=== PATIENT | female | born 1980 | race Caucasian/White ===

== ENCOUNTER → 2017-12-22 16:21 | Outpatient (CLI) | payer OTHER, SELFPAY ==
[2017-12-26 11:40] LABS: HPV Reflexed? NOT INDICATED
== END ==
PROVIDERS: Visit Provider Obstetrics & Gynecology
DX: Z12.4 Encounter for screening for malignant neoplasm of cervix (principal)
CPT/HCPCS: 88175; G0145

== ENCOUNTER → 2020-04-11 13:12 | Outpatient (CLI) | payer OTHER, SELFPAY ==
[2015-11-26 21:11] VITALS: BMI 27.3
[2020-04-11 13:44] LABS: Hematocrit 34.1 % (37-47); Mean Corp Hgb Conc 32.3 g/dL (32-36); Mean Corpuscular Hgb 30.5 pg (27.0-32.0); Mean Corpuscular Volume 94.5 fL (81-99); Mean Platelet Vol. 9.2 fl (6.2-12.0); Platelet Count 194 K/mm3 (150-450); RBC Distribution Width CV 13.1 % (11.6-14.6); RBC Distribution Width SD 45.3 fl (35.1-43.9); Red Blood Count 3.61 M/mm3 (4.2-5.4)
[2020-04-11 15:55] LABS: Glucose Challenge Gest 1H 50g 71 mg/dL (70-140)
== END ==
PROVIDERS: Visit Provider Student in an Organized Health Care Education/Training Program
DX: Z34.82 Encounter for supervision of other normal pregnancy, second trimester (principal)
CPT/HCPCS: 36415; 82950; 85027

== ENCOUNTER → 2020-07-07 | Outpatient (CLI) | payer OTHER, SELFPAY ==
[2015-11-26 21:11] VITALS: BMI 27.3
== END | disposition home or self-care (01) ==
LOC: LABSPEC 11:39
PROVIDERS: Visit Provider Student in an Organized Health Care Education/Training Program
DX: Z36.85 Encounter for antenatal screening for Streptococcus B (principal)
CPT/HCPCS: 87077; 87081; 87186

== ENCOUNTER → 2020-07-24 | Outpatient (CLI) | payer OTHER, SELFPAY | END | disposition home or self-care (01) | LOC: LABSPEC 14:35 | PROVIDERS: PCP Family Medicine; Referring Provider Student in an Organized Health Care Education/Training Program; Visit Provider Student in an Organized Health Care Education/Training Program | DX: Z03.818 Encounter for observation for suspected exposure to other biological agents ruled out (principal) | CPT/HCPCS: 87635; C9803; U0002 ==

== ENCOUNTER 2020-07-27 05:00 | Inpatient (IN) | payer OTHER, SELFPAY ==
[2020-07-27] VITALS (16 sets, daily range): BP systolic 90–113; BP diastolic 45–61; PULSE 43–58; RESP 10–18; TEMP 36–36.9; O2SAT 97–100; BMI 25.6
[2020-07-27] MEDS: Lactated Ringers 1,000 ML 999 ML IV (05:25)
[2020-07-27 05:38] LABS: Absolute Lymphocyte Count 1.09 X10^3/uL (0.83-4.51); Absolute Neutrophil Count 3.3 X10^3/uL (2.0-7.7); Basophil# 0.03 X10^3/uL; Basophil% 0.6 % (0-1); Eosinophil# 0.02 X10^3/uL; Eosinophils% 0.4 % (0-5); Hematocrit 36.3 % (37-47); Hemoglobin 12.1 g/dL (12.0-15.0); Lymphocyte # 1.09 X10^3/ul (4.0); Lymphocyte % 22.3 % (19-41); Mean Corp Hgb Conc 33.3 g/dL (32-36); Mean Corpuscular Hgb 31.8 pg (27.0-32.0); Mean Corpuscular Volume 95.5 fL (81-99); Mean Platelet Vol. 10.2 fl (6.2-12.0); Monocyte% 8.2 % (0-10); NRBC Flagged by Analyzer 0 % (0-5); Neutrophil # 3.26 X10^3/uL (2.7-7.7); Neutrophil % 66.9 % (47-70); Platelet Count 162 K/mm3 (150-450); RBC Distribution Width CV 11.9 % (11.6-14.6); RBC Distribution Width SD 41.3 fl (35.1-43.9); White Blood Count 4.9 K/mm3 (4.4-11.0)
[2020-07-27] MEDS: Acetaminophen 500 MG Tablet 1000 MG PO ×3 (05:43→18:29)
[2020-07-27] MEDS: Lactated Ringers 1,000 ML 150 ML IV (06:23)
[2020-07-27] MEDS: Sodium Citrate/Citric Acid 30 ML UDC PO (06:41)
--- NOTE | 2020-07-27 07:24 | HP.PCM_ITS ---
History and Physical Date of Admission: 07/27/20 HPI: 39-year-old L3 at 39/5, MARITO 07/29/2020 by IVF, admitted for repeat section. Denies leaking of fluid, vaginal bleeding, reports movement. This is complicated by: IVF , advanced maternal age Obstetrical History living 3 G1: 01/25/13 primary c-sesction, female G2: Repeat C/S on 11/26/15.twin girls G3: Current Past Medical History Infertility Medications PNV Past Surgical History [place] teeth extraction, section, dilation and curettage Social History Tobacco use: Denies Alcohol use: Denies Illicit drug use: Denies Labs Blood type: A positive Rubella: Immune Hep B/C: Neg/Neg HIV: Neg RPR: nonreactive GBS: pos Allergies NKDA Review of Systems General: alert and oriented HEENT: _denies change of vision Heart/lungs: _denies CP, SOB GI: _denies nausea, vomiting, dysuria, diarrhea MSK: _denies calf pain, tenderness Physical Exam Vital Signs Temp Pulse Resp BP Pulse Ox 07/27/20 05:24 97.6 F L 58 L 16 104/59 L 98 General: a&o x3, NAD HEENT: normocephalic, atraumatic Cardio: no JVD Resp: no increased work in breathing Abdomen: soft, gravid, nontender Extremities: _minimal-moderate edema Labs Laboratory Results - last 24 hr 07/27/20 07/27/20 05:26 05:26 WBC 4.9 RBC 3.80 L Hgb 12.1 Hct 36.3 L MCV 95.5 MCH 31.8 MCHC 33.3 RDW Std Deviation 41.3 RDW Coeff of Leeroy 11.9 Plt Count 162 MPV 10.2 Immature Gran % (Auto) 1.600 H Neut % (Auto) 66.9 Lymph % (Auto) 22.3 [place] % (Auto) 8.2 Eos % (Auto) 0.4 Baso % (Auto) 0.6 Absolute Neuts (auto) 3.3 Absolute Lymphs (auto) 1.09 Nucleated RBC % 0 Blood Type A POSITIVE Antibody Screen NEGATIVE Assessment & Plan 39-year-old L3 at 39/5, MARITO 07/29/2020 by IVF, admitted for repeat section. This is complicated by: IVF , advanced maternal age Admit to L&D - Routine labor orders - Ancef 2g preop - GBS pos - Anesthesia to see
[2020-07-27] MEDS: Cefazolin 2 GM in 0.9% Normal Saline 100 ML IV (07:28)
--- NOTE | 2020-07-27 08:15 | PCM.OPRPT ---
Delivery Classification: Scheduled Final MARITO: 07/29/20 Final MARITO Source: US <20 weeks Gestational age: 39 Weeks and 5 Days Date of Procedure: 07/27/20 Pre-Operative Diagnosis: Mireles intrauterine . Repeat section Post-Operative Diagnosis: Mireles intrauterine . Repeat section Indications: 39-year-old G3, P2 L3 at 39/5 weeks admitted for repeat section. All risks, benefits, alternatives discussed with the patient. Risks include but are not limited to: Risk of bleeding to the point of transfusion, infection, injury to surrounding tissue including bowel or bladder, VTE, ICU admission. Patient aware and consented Description of Procedure: Patient taken to the operating room spinal anesthesia placed. Patient placed in the supine position with left lateral tilt. Prepped and draped in usual sterile fashion. Pfannenstiel skin incision and carried through subcutaneous tissue. Fascia nicked on either side of the midline and extended bilaterally using Petty scissors. Kavya clamps grasped superior fascial edge which was tented up underlying rectus muscles were dissected off bluntly and sharply at midline, peritoneal opening noted. Kavya clamps moved to inferior fascial edge which was tented up and underlying rectus muscles were dissected off bluntly and sharply. Blunt extension of the peritoneal opening. Bladder blade placed. Low transverse uterine incision made with scalpel extended bluntly. Amniotomy clear fluid. Hand placed into the uterus and with the assistance of gentle fundal pressure head delivered followed by body. No nuchal cord. Cord clamped and cut. Baby to nursing. Manual extraction of placenta. Uterus exteriorized and cleared of all clots. Hysterotomy closed with a running locking fashion followed by a second imbricating stitch. Oozing noted in the uterine serosa on the left superior edge, closed with [id number] stitches. Hemostatic. Small stable hematoma at the right side of the uterine incision. oozing stopped with [id number] stitch on the right side of the hysterotomy closure, hemostatic. Uterus replaced into the abdomen. Hysterotomy hemostatic. Sana placed. Peritoneum closed with a running fashion. Fascia closed with running stitch. Skin closed with a running subcuticular stitch. At the end of the procedure all needle, lap, sponge counts were correct x3. Urine output: 200 cc. Amniotic Membrane Rupture Type: Artificial Amniotic Fluid Description: Clear Cord Entanglement: None Gender: Male (1 minute): 9 (5 minute): 9 Delayed cord clamping: Yes Antibiotic Given: Ancef 2 grams IV x1
[2020-07-27] MEDS: Oxytocin 30 units/NS 500 ml 30 UNITS/500 ML IV.SOLN 167 UNITS IV (09:08)
[2020-07-27] MEDS: Ketorolac 30 MG/ML Syringe IV ×3 (09:09→20:59)
[2020-07-27] MEDS: Senna/Docusate Sodium 1 Tablet PO (11:28)
[2020-07-27] MEDS: Lactated Ringers 1,000 ML 100 ML IV (12:27)
[2020-07-27] MEDS: Ondansetron 4 MG/2 ML Vial IV (12:27)
[2020-07-27] MEDS: proCHLORPERazine 10 MG/2 ML Vial IV (15:25)
[2020-07-28] MEDS: Acetaminophen 500 MG Tablet 1000 MG PO ×3 (00:06→12:09)
[2020-07-28 00:11] VITALS: BP 102/46; PULSE 58; RESP 14; TEMP 36.4; O2SAT 100
[2020-07-28] MEDS: Ketorolac 30 MG/ML Syringe IV (03:37)
[2020-07-28] MEDS: 0.9% Saline Lock 10 ML Syringe IV (03:37)
[2020-07-28 05:48] VITALS: BP 104/60; PULSE 48; RESP 18; TEMP 36.7; O2SAT 100
[2020-07-28 06:00] LABS: Hematocrit 31.7 % (37-47); Hemoglobin 10.8 g/dL (12.0-15.0); Mean Corp Hgb Conc 34.1 g/dL (32-36); Mean Corpuscular Hgb 32.9 pg (27.0-32.0); Mean Corpuscular Volume 96.6 fL (81-99); Mean Platelet Vol. 9.9 fl (6.2-12.0); Platelet Count 136 K/mm3 (150-450); RBC Distribution Width CV 12.2 % (11.6-14.6); RBC Distribution Width SD 42.5 fl (35.1-43.9); Red Blood Count 3.28 M/mm3 (4.2-5.4); White Blood Count 7.5 K/mm3 (4.4-11.0)
[2020-07-28 08:20] VITALS: BP 104/54; PULSE 56; RESP 16; TEMP 36.7; O2SAT 98
--- NOTE | 2020-07-28 08:50 | DCINST_ITS ---
Discharge Activity: Return to Normal Activity, May not drive while taking narcotic pain medications., May Shower May resume sexual activity in: 4-6 weeks Weight Bearing Status: Weight bearing as tolerated Call your doctor if your incision/area has: Continuous Slow Oozing, Increased Pain/ Swelling, Increased Redness Call your doctor if you observe: Fever of 101 or Higher, Coldness, Increased Pain, Inability to urinate, Inability to have a bowel movement, Using more than one pad per hour Additional Instructions: If you experience any of the following, contact your healthcare provider. * Bleeding that soaks a pad every hour for 2 hours * Fever 100.4 or higher * Unrelieved incision or abdominal pain * Swelling, redness, discharge or bleeding from your incision or episiotomy site * Your incision begins to separate * Problems urinating (including inability to urinate or burning while urinating). * Visual changes * Severe headache * Flu-like symptoms * Pain or redness in one of both of your breasts * Pain, warmth, tenderness or swelling in your legs, especially the calf area * Frequent nausea and vomiting * Symptoms of depression or anxiety If you experience any of the following, call 911 or go to the nearest Emergency Room. * Chest pain * Problems breathing * Seizure activity * Partial or complete paralysis of a body part, slurred speech, weakness or drooping of the face, or a sudden inability to walk or hold your balance Allergies/Adverse Reactions: Allergies No Known Allergies Allergy (Verified 07/27/20 05:22) Medications to take at Discharge Prenatabs FA 1 tab PO DAILY 10/27/15 Follow-Up: Call to make an appointment with your doctor for an incision check in 1-2 weeks. You will also need a 6 week post- follow up appointment. Test results from this visit will be discussed in further detail at your follow- up appointment, if applicable. Please Follow Up With: Tess Rodriguez DO When: 2 week post op, 6 week Primary Care Physician: Lottie Valdez MD [Primary Care Provider] -
--- NOTE | 2020-07-28 08:51 | PCM.PN.OB ---
Subjective: POD #1 Feeling well. Pain controlled. Lochia minimal. . - Physical Exam Vitals/I&O's: Vital Signs Temp Pulse Resp BP Pulse Ox 98.1 F 56 L 16 104/54 L 98 07/28/20 08:20 07/28/20 08:20 07/28/20 08:20 07/28/20 08:20 07/28/20 08:20 Oxygen Delivery Method Room Air Weight: 78.653 kg Body Mass Index (BMI) 25.6 Intake and Output for Last 24 Hours 07/26/20/04/0807/28/20 23:59 23:59 23:59 Intake Total 6899.04 / 6899.04 Output Total 1750 / 1750 1100 / 1100 Balance 5149.04 / 5149.04 -1100 / -1100 General: Alert, Oriented x3, No apparent distress HEENT: Atraumatic, Normocephalic Neck: Supple Lungs: Normal air movement Cardiovascular: Regular rate Abdomen: Soft - dressing c/d. uterus 2 cm below umbilicus Extremities: No edema Neurological: Cranial nerves II-XII grossly intact, Deep Tendon Reflexes 2+/4 and Symmetrical Psych/Mental Status: Normal Affect, Appropriate Laboratory Results 07/28/20 05:53: WBC 7.5, RBC 3.28 L, Hgb 10.8 L, Hct 31.7 L, MCV 96.6, MCH 32.9 H, MCHC 34.1, RDW Std Deviation 42.5, RDW Coeff of Leeroy 12.2, Plt Count 136 L, MPV 9.9 Current Medications Acetaminophen (Acetaminophen 500 Mg Tablet) 1,000 mg PO Q6H [facility] Last Admin: 07/28/20 05:45 Dose: 1,000 mg Documented by: Bisacodyl (Bisacodyl 10 Mg Suppository) 10 mg RC UD PRN PRN Reason: If no BM Diphenhydramine HCl (Diphenhydramine 25 Mg Capsule) 25 mg PO Q6H PRN PRN PRN Reason: ITCHING Stop: 07/28/20 11:14 Enoxaparin Sodium (Enoxaparin 40 Mg/0.4 Ml Syringe) 40 mg SC DAILY@2200 [facility] Hydrocortisone (Hydrocortisone 2.5% Crm) 1 applic TOPICAL TID PRN PRN; Protocol PRN Reason: Discomfort Ibuprofen (Ibuprofen 600 Mg Tablet) 600 mg PO Q6H [facility] Nalbuphine HCl (Nalbuphine 10 Mg/Ml Ampul) 5 mg IV Q3H PRN PRN PRN Reason: ITCHING Stop: 07/28/20 11:14 Naloxone HCl (Naloxone 0.4 Mg/Ml Syringe) 0.02 mg IV Q1M PRN PRN Reason: RR <10 and pt unresponsive Ondansetron HCl (Ondansetron 4 Mg/2 Ml Vial) 4 mg IV Q4H PRN PRN PRN Reason: Nausea Last Admin: 07/27/20 12:27 Dose: 4 mg Documented by: Oxycodone HCl (Oxycodone 5 Mg Tablet) 5 - 10 mg PO Q4H PRN PRN PRN Reason: Pain Score 4-10 Prochlorperazine Edisylate (Prochlorperazine 10 Mg/2 Ml Vial) 10 mg IV Q6H PRN PRN PRN Reason: NAUSEA Last Admin: 07/27/20 15:25 Dose: 10 mg Documented by: Senna/Docusate Sodium (Senna/Docusate Sodium 1 Tablet) 1 - 2 tablet PO DAILY [facility] Last Admin: 07/27/20 11:28 Dose: 1 tablet Documented by: Simethicone (Simethicone 80 Mg Tablet) 80 mg PO PCHS PRN PRN Reason: Indigestion/stomach pain Sodium Chloride (0.9% Saline Lock 10 Ml Syringe) 5 - 15 ml IV UD PRN PRN Reason: SALINE FLUSH Last Admin: 07/28/20 03:37 Dose: 15 ml Documented by: Zolpidem Tartrate (Zolpidem Tartrate 5 Mg Tablet) 5 mg ORAL QHS PRN PRN PRN Reason: Insomnia Medical Necessity - Tobacco Use Smoking Status: Never smoker Assessment/Plan 39 yo POD1 s/p repeat section. Acute blood loss anemia secondary to surgery, no need for iron. Home today
[2020-07-28] MEDS: Senna/Docusate Sodium 1 Tablet PO (10:06)
[2020-07-28] MEDS: Ibuprofen 600 MG Tablet PO (10:07)
[2020-07-28] MEDS: Enoxaparin 40 MG/0.4 ML Syringe SC (12:10)
[2020-07-28 12:13] VITALS: BP 105/46; PULSE 55; RESP 18; TEMP 36.8
== END 2020-07-28 13:25 | disposition home or self-care (01) | DRG 788 ==
PROVIDERS: Admitting Provider Student in an Organized Health Care Education/Training Program; PCP Family Medicine; Referring Provider Student in an Organized Health Care Education/Training Program; Visit Provider Student in an Organized Health Care Education/Training Program
PROC: 10D00Z1 Extraction of Products of Conception, Low, Open Approach (ICD-10-PCS; CPT 59514; principal; 2020-07-27 07:15)
DX: O98.82 Other maternal infectious and parasitic diseases complicating childbirth (principal); B95.1 Streptococcus, group B, as the cause of diseases classified elsewhere; Z3A.39 39 weeks gestation of pregnancy; Z37.0 Single live birth
CPT/HCPCS: 85025; 85027; 86850; 86900; 86901; 99218; J7120; A4216; G0378; J2405

== ENCOUNTER → 2020-09-08 | Outpatient (CLI) | payer OTHER, SELFPAY ==
[2020-07-27 05:24] VITALS: BMI 25.6
[2020-09-11 07:06] LABS: Chlamydia By Nucleic Acid AMP Negative (Negative)
[2020-09-11 07:50] LABS: Gonococcus By Nucleic Acid AMP Negative (Negative)
[2020-09-12 12:40] LABS: HPV APTIMA, High Risk Negative (Negative)
== END | disposition home or self-care (01) ==
LOC: LABSPEC 12:51
PROVIDERS: PCP Family Medicine; Visit Provider Student in an Organized Health Care Education/Training Program
DX: Z11.3 Encounter for screening for infections with a predominantly sexual mode of transmission (principal); Z12.4 Encounter for screening for malignant neoplasm of cervix
CPT/HCPCS: 87491; 87591; 87624; 88175; G0145